=== PATIENT | female | born 1995 | race American Indian/Alaskan Native ===

== ENCOUNTER 2016-07-29 11:25 | Emergency (ER) | payer SELFPAY ==
[2016-07-29 12:18] LABS: Bilirubin,Urine NEG (Negative); Blood,Urine SM (Negative); Ketones,Urine 80 mg/dL (Negative); Leukocyte Esterase,Urine SM (Negative); Mucus,Urine 3+ /HPF; Nitrite,Urine NEG (Negative); Urobilinogen,Urine < 2.0 mg/dL (<2.0)
[2016-07-29 12:50] LABS: Basophils % (Auto) 0.2 % (0.0-1.8); Eosinophils % (Auto) 0.1 % (0.0-4.3); Hematocrit 36.6 % (30.3-42.9); Hemoglobin 11.9 gm/dl (10.1-14.3); Mean Corpuscular HGB Conc 33 % (30-34); Mean Corpuscular Hemoglobin 29 pg (28-32); Mean Corpuscular Volume 88 fl (79-97); Platelet Count 252 K/mm3 (140-440); Red Blood Count 4.16 M/mm3 (3.65-5.03); Red Cell Distribution Width 15.5 % (13.2-15.2); White Blood Count 13.9 K/mm3 (4.5-11.0)
[2016-07-29 12:52] LABS: Alanine Aminotransferase 20 units/L (7-56); Albumin 3.7 g/dL (3.9-5); Albumin/Globulin Ratio 0.8 %; Alkaline Phosphatase 105 units/L (35-129); Anion Gap 19 mmol/L; Blood Urea Nitrogen 6 mg/dL (7-17); Calcium 9.5 mg/dL (8.4-10.2); Carbon Dioxide 27 mmol/L (22-30); Chloride 93.7 mmol/L (98-107); Glucose 97 mg/dL (65-100); Lipase 19 units/L (13-60); Potassium 3.5 mmol/L (3.6-5.0); Sodium 136 mmol/L (137-145); Total Protein 8.2 g/dL (6.3-8.2)
[2016-07-29] MEDS ORDERED: NACL 0.9% 1000 ML 1,000 ML IV ONE ×2 (15:03→17:02)
[2016-07-29] MEDS ORDERED: TORADOL IV ONE (15:11)
--- NOTE | 2016-07-29 15:15 | Emergency Department Report ---
ED N/V/D HPI - General Chief complaint: Nausea/Vomiting/Diarrhea Stated complaint: MOSES/PASSED OUT/FEVER/VOMITTING BLOOD/BODY ACHES Time Seen by Provider: 07/29/16 15:01 Source: patient, RN notes reviewed Mode of arrival: Ambulatory Limitations: No Limitations - History of Present Illness Initial comments: 21-year-old female presents to the emergency department complaining of nausea, vomiting, and diarrhea. Patient states for the past 4 days she has been having nausea and vomiting. She is also complaining of generalized body aches. Diarrhea began today. She denies seeing blood. Patient states she has been running a fever intermittently at home. Fever today was 102F. She states she took some Tylenol for coming to the emergency department. Patient also reports passing out 3 times over the past 4 days. Patient states this has occurred after she has had an episode of vomiting and she tries to get up and walk around. Patient is also complaining of brown vaginal discharge. She denies seeing any blood. She does report a foul odor. She reports her last sexual encounter was over 6 weeks ago. There are no other complaints. MD complaint: nausea, vomiting, diarrhea -: Gradual, days(s) (3) Description of Vomiting: bilious Description of Diarrhea: water Associated Abdominal Pain: Yes Location: diffuse Radiation: none Severity: mild Pain Scale: 2 Quality: aching Consistency: constant Improves with: none Worsens with: none Associated Symptoms: myalgias, fever/chills, syncope - Related Data Home Medications Medication Instructions Recorded Confirmed Last Taken Acetaminophen [Tylenol] 650 mg PO Q6HR PRN 07/29/16 07/29/16 07/29/16 Previous Rx's Medication Instructions Recorded Last Taken Type HYDROcodone/APAP 5-325 [Hudson 1 each PO Q6HR PRN #20 tablet 07/29/16 Unknown Rx 5/325] Promethazine [Phenergan TAB] 25 mg PO Q6HR PRN #20 tab 07/29/16 Unknown Rx metroNIDAZOLE [Flagyl] 500 mg PO Q12HR #14 tab 07/29/16 Unknown Rx Allergies Allergy/AdvReac Type Severity Reaction Status Date / Time shellfish derived Allergy Anaphylaxis Verified 07/29/16 11:43 ED Review of Systems ROS: Stated complaint: MOSES/PASSED OUT/FEVER/VOMITTING BLOOD/BODY ACHES Other details as noted in HPI Comment: All other systems reviewed and negative Constitutional: fever Cardiovascular: syncope Gastrointestinal: nausea, vomiting, diarrhea Musculoskeletal: myalgia ED Past Medical Hx - Past Medical History Previous Medical History?: No - Surgical History Past Surgical History?: No - Family History Family history: no significant - Social History Smoking Status: Former Smoker Substance Use Type: None - Medications Home Medications: Home Medications Medication Instructions Recorded Confirmed Last Taken Type Acetaminophen [Tylenol] 650 mg PO Q6HR PRN 07/29/16 07/29/16 07/29/16 History HYDROcodone/APAP 5-325 [Hudson 1 each PO Q6HR PRN #20 tablet 07/29/16 Unknown Rx 5/325] Promethazine [Phenergan TAB] 25 mg PO Q6HR PRN #20 tab 07/29/16 Unknown Rx metroNIDAZOLE [Flagyl] 500 mg PO Q12HR #14 tab 07/29/16 Unknown Rx ED Physical Exam - General Limitations: No Limitations General appearance: alert, in no apparent distress - Head Head exam: Present: atraumatic, normocephalic - Eye Eye exam: Present: normal appearance, PERRL, EOMI - ENT ENT exam: Present: mucous membranes moist, other (bilateral tonsillar hypertrophy without erythema or exudate) - Neck Neck exam: Present: normal inspection, full ROM. Absent: tenderness - Respiratory Respiratory exam: Present: normal lung sounds bilaterally. Absent: respiratory distress - Cardiovascular Cardiovascular Exam: Present: regular rate, normal rhythm, normal heart sounds - GI/Abdominal GI/Abdominal exam: Present: soft, normal bowel sounds. Absent: distended, tenderness - External exam: Present: normal external exam Speculum exam: Present: vaginal discharge (thin, white). Absent: cervical discharge, vaginal bleeding - Extremities Exam Extremities exam: Present: normal inspection, full ROM. Absent: tenderness - Back Exam Back exam: Present: normal inspection, full ROM. Absent: tenderness - Neurological Exam Neurological exam: Present: alert, oriented X3. Absent: motor sensory deficit - Skin Skin exam: Present: warm, dry, intact ED Course Vital Signs 07/29/16 07/29/16 07/29/16 11:33 15:05 15:42 Temperature 98 F 98.8 F Pulse Rate 87 80 Respiratory 16 16 16 Rate Blood Pressure 142/93 Blood Pressure 115/82 [Left] O2 Sat by Pulse 100 100 100 Oximetry ED Medical Decision Making - Lab Data Result diagrams: 07/29/16 12:19 07/29/16 12:19 - Medical Decision Making Lab results reviewed and discussed with the patient. Patient reports feeling better with IV fluids and medication. Patient informed that her sexual partner will also need to be treated for Trichomonal infection. Patient will be discharged home at this time. - Differential Diagnosis viral syndrome, dehydration, electrolyte abnormality Critical care attestation.: If time is entered above; I have spent that time in minutes in the direct care of this critically ill patient, excluding procedure time. ED Disposition Clinical Impression: Trichomonal vaginitis Disposition: DISCHARGED TO HOME OR SELFCARE Is pt being admited?: No Condition: Stable Instructions: Trichomoniasis (ED) Prescriptions: HYDROcodone/APAP 5-325 [Hudson 5/325] 1 each PO Q6HR PRN #20 tablet PRN Reason: Pain metroNIDAZOLE [Flagyl] 500 mg PO Q12HR #14 tab Promethazine [Phenergan TAB] 25 mg PO Q6HR PRN #20 tab PRN Reason: Nausea Referrals: PRIMARY CARE, [Primary Care Provider] - 3-5 Days Time of Disposition: 19:04
[2016-07-29] MEDS ORDERED: NORCO 5/325 ONE (16:58)
[2016-07-29] MEDS ORDERED: NORCO 5/325 PO ONE (17:02)
[2016-07-29 19:23] VITALS: BP 115/80
== END 2016-07-29 19:23 | disposition home or self-care (01) ==
LOC: ED 11:25
DX: A59.01 Trichomonal vulvovaginitis (principal); Z91.013 Allergy to seafood; Z87.891 Personal history of nicotine dependence
CPT/HCPCS: 36415; 80053; 81001; 81025; 83690; 85025; 87210; 87591; 96361; 96374; 99284; J1885; J7030